=== PATIENT | male | born 1980 | race Two or more races ===

== ENCOUNTER 2018-02-05 21:11 | Inpatient (IN) | payer BC ==
[2018-02-05 21:32] VITALS: BMI 22.0
[2018-02-05] MEDS ORDERED: MELATONIN 5 MG TABLETS PO PRN (22:00)
--- NOTE | 2018-02-05 22:23 | HP ---
COWS - Scale Resting Pulse: 0= [place] 80 or Below Sweatin= Chills/Flushing Restless Observation: 1= Difficult to Sit Still Pupil Size: 0= Normal to Room Light Bone or Joint Aches: 1= Mild Discomfort Runny Nose/ Eye Tearin= Runny Nose/Eyes GI Upset > 30mins: 2= Nausea/Diarrhea Tremor Observation: 1= Tremor Steward, Not Seen Yawning Observation: 2= >3x During Session Anxiety or Irritability: 2=Irritable/Anxious Goose Flesh Skin: 0=Smooth Skin COWS Score: 12 Admission [facility] - HPI Chief Complaint: " I am dope sick" Allergies/Adverse Reactions: Allergies Allergy/AdvReac Type Severity Reaction Status Date / Time No Known Allergies Allergy Verified 02/05/18 22:29 History of Present Illness: 37 yo male with hx of IV heroin, cocaine, THC, and nicotine dependence is here seeking detox. Reports anxiety, denies any medical history or psychiatric hx. Denies suicidal / homicidal ideation. Last detox at [facility] one month ago, reports relapse after failed attempted to get into rehab. Longest period of sobriety 7 years. Exam Limitations: No Limitations - Ebola screening Have you been sick,other than usual withdrawal symptoms: No - Review of Systems Constitutional: Chills, Loss of Appetite, Changes in sleep, Weakness, Unintentional Wgt. Loss (30 lbs) EENT: reports: Throat Pain, Other (runny nose) Respiratory: reports: No Symptoms reported Cardiac: reports: No Symptoms Reported GI: reports: Diarrhea, Nausea, Poor Appetite, Poor Fluid Intake, Abdominal cramping : reports: No Symptoms Reported Musculoskeletal: reports: Back Pain, Joint Pain Integumentary: reports: Pruritus Neuro: reports: Weakness Endocrine: reports: Increased Thirst Hematology: reports: No Symptoms Reported Psychiatric: reports: Orientated x3, Agitated Other Systems: Reviewed and Negative Patient History - Patient Medical History Hx Anemia: No Hx Asthma: No Hx Chronic Obstructive Pulmonary Disease (COPD): No Hx Cancer: No Hx Cardiac Disorders: No Hx Congestive Heart Failure: No Hx Hypertension: No Hx Hypercholesterolemia: No Hx Pacemaker: No HX Cerebrovascular Accident: No Hx Seizures: No Hx Dementia: No Hx Diabetes: No Hx Gastrointestinal Disorders: No Hx Liver Disease: No Hx Genitourinary Disorders: No Hx Sexually Transmitted Disorders: No Hx Renal Disease (ESRD): No Hx Thyroid Disease: No Hx Human Immunodeficiency Virus (HIV): No (last tested 6 months ago ) Hx Hepatitis C: No Hx Depression: No Hx Suicide Attempt: No Hx Bipolar Disorder: No Hx Schizophrenia: No - Patient Surgical History Past Surgical History: No Hx Neurologic Surgery: No Hx Cataract Extraction: No Hx Cardiac Surgery: No Hx Lung Surgery: No Hx Breast Surgery: No Hx Breast Biopsy: No Hx Abdominal Surgery: No Hx Appendectomy: No Hx Cholecystectomy: No Hx Genitourinary Surgery: No Hx Section: No Hx Orthopedic Surgery: No Hx Hysterectomy: No Anesthesia Reaction: No - PPD History Previous Implant?: Yes Documented Results: Negative w/o proof PPD to be Administered?: Yes - Smoking Cessation Smoking history: Current every day smoker Have you smoked in the past 12 months: Yes Aproximately how many cigarettes per day: 20 Hx Chewing Tobacco Use: No Initiated information on smoking cessation: Yes 'Breaking Loose' booklet given: 02/05/18 - Substance & Tx. History Hx Alcohol Use: No Hx Substance Use: Yes Substance Use Type: Cocaine, Heroin, Marijuana Hx Substance Use Treatment: Yes ([facility] one month ago) - Substances Abused Marijuana/Hashish Route: Smoking Frequency: Daily Amount used: 3 - 7 g Age of first use: 12 Date of Last Use: 02/05/18 Heroin Route: Injection Frequency: Daily Amount used: 30 bags Age of first use: 16 Date of Last Use: 02/05/18 Cocaine Route: Injection Frequency: Daily Amount used: 1 gram Age of first use: 16 Date of Last Use: 02/05/18 Family Disease History - Family Disease History Family History: Denies Admission Physical Exam [facility] - Vital Signs Vital Signs: Vital Signs - 24 hr 02/05/18 21:30 Temperature 97.7 F Pulse Rate 71 Respiratory 18 Rate Blood Pressure 105/66 - Physical General Appearance: Yes: Disheveled, Mild Distress, Thin, Irritable, Anxious HEENTM: Yes: EOMI, Hearing grossly Normal, Normal ENT Inspection, Pharynx Normal , Tm's normal, Rhinorrhea Respiratory: Yes: Chest Non-Tender, Lungs Clear, Normal Breath Sounds, No Respiratory Distress, No Accessory Muscle Use Neck: Yes: No masses,lesions,Nodules, Trachea in good position Breast: Yes: Breast Exam Deferred Cardiology: Yes: Regular Rhythm, Regular Rate Abdominal: Yes: Normal Bowel Sounds, Non Tender, Flat, Soft Genitourinary: Yes: Within Normal Limits Back: Yes: Normal Inspection Musculoskeletal: Yes: full range of Motion, Gait Steady, Pelvis Stable, Back pain Extremities: Yes: Normal Capillary Refill, Normal Inspection, Normal Range of Motion, Non-Tender Neurological: Yes: chief lending officer II-XII NML intact, Fully Oriented, Motor Strength 5/5, Depressed Affect Integumentary: Yes: Normal Color, Warm, Diaphoresis Lymphatic: Yes: Within Normal Limits - Diagnostic (1) IVDU (intravenous drug user) Current Visit: Yes Status: Acute (2) Cocaine dependence Current Visit: Yes Status: Acute Qualifiers: Substance use status: uncomplicated Qualified Code(s): F14.20 - Cocaine dependence, uncomplicated (3) Marijuana dependence Current Visit: Yes Status: Acute (4) Opioid dependence with withdrawal Current Visit: Yes Status: Acute (5) Anxious mood Current Visit: Yes Status: Acute (6) Nicotine dependence Current Visit: Yes Status: Acute Qualifiers: Nicotine product type: cigarettes (7) Weight loss Current Visit: Yes Status: Acute Cleared for Admission [facility] - Detox or Rehab [facility] Level of Care: Medically Managed Detox Regimen/Protocol: Methadone [facility] Breath Alcohol Content Breath Alcohol Content: 0 Urine Drug Screen - Results Drug Screen Negative: No Urine Drug Screen Results: THC-Marijuana, KIRTI-Cocaine, OPI-Opiates
[2018-02-05] MEDS ORDERED: guaiFENesin/D-METHORPHAN HB 10 ML UNIT-DOSE CUPS PO PRN (22:29)
[2018-02-05] MEDS ORDERED: MENTHOL/PHENOL 1 EACH UD MM PRN (22:29)
[2018-02-05] MEDS ORDERED: LOPERAMIDE HCL 2 MG CAPSULE PO PRN (22:29)
[2018-02-05] MEDS ORDERED: MAGNESIUM HYDROX 2400MG/30ML ORAL SUSPENSION 30 ML CUP PO PRN (22:29)
[2018-02-05] MEDS ORDERED: METHADONE HCL 10 MG TABLET (FOR DETOX USE ONLY) PO ONE ×2 (22:29→23:00)
[2018-02-05] MEDS ORDERED: P-EPHED 60MG/TRIPROLIDI 2.5MG TABLET PO PRN (22:29)
[2018-02-05] MEDS ORDERED: ACETAMINOPHEN 325 MG TABLET (FP) PO PRN (22:29)
[2018-02-05] MEDS ORDERED: diazePAM 5 MG TABLET PO PRN (22:29)
[2018-02-05] MEDS ORDERED: MAGNESIUM CITRATE 300 ML BOTTLE PO PRN (22:29)
[2018-02-05] MEDS ORDERED: MAG HYDROX/AL HYDROX/SIMETH 30 ML UNIT-DOSE CUP PO PRN (22:29)
[2018-02-05] MEDS ORDERED: hydrOXYzine PAMOATE 50 MG CAPSULE (FP) PO PRN (22:29)
[2018-02-05] MEDS ORDERED: IBUPROFEN 400 MG TABLET (FP) PO PRN (22:29)
[2018-02-05] MEDS ORDERED: NICOTINE POLACRILEX 2 MG GUM BC PRN (22:29)
[2018-02-05] MEDS: LIDOCAINE PATCH REMOVAL MC SCH (23:13)
[2018-02-06 00:06] LABS: URINE APPEARANCE SLCLOUDY; URINE BILIRUBIN NEGATIVE (<2.0 mg/dL); URINE COLOR DKYELLOW; URINE GLUCOSE (UA) NEGATIVE (NEGATIVE); URINE KETONE NEGATIVE (NEGATIVE); URINE LEUK ESTERASE NEGATIVE (NEGATIVE); URINE NITRITE NEGATIVE (NEGATIVE); URINE UROBILINOGEN NEGATIVE mg/dL (0.2-1.0)
[2018-02-06 00:07] LABS: URINE PROTEIN 2+ (NEGATIVE)
[2018-02-06 00:43] LABS: URINE MUCUS FEW
[2018-02-06] MEDS ORDERED: METHADONE HCL 10 MG TABLET (FOR DETOX USE ONLY) PO ONE (10:00)
[2018-02-06 10:11] LABS: MCH 27.3 pg (25.7-33.7); MCHC 32.5 g/dl (32.0-35.9); MEAN CELL VOLUME 83.9 fl (80-96); MEAN PLT VOLUME 9.5 fl (7.5-11.1); PLATELET COUNT 236 K/MM3 (134-434); RBC 4.41 M/mm3 (4.00-5.60); WHITE BLOOD COUNT 6.2 K/mm3 (4.0-10.0)
[2018-02-06 10:23] LABS: CHLORIDE 105 mmol/L (98-107); POTASSIUM 4.2 mmol/L (3.5-5.1); SODIUM 142 mmol/L (136-145)
[2018-02-06 10:36] LABS: ALBUMIN 3.4 g/dl (3.4-5.0); ALK PHOS 121 U/L (45-117); ANION GAP 6 (8-16); BILIRUBIN,TOTAL 0.2 mg/dL (0.2-1.0); BLOOD UREA NITROGEN 17 mg/dL (7-18); CALCIUM 8.4 mg/dL (8.5-10.1); CO2 31 mmol/L (21-32); GLUCOSE,RANDOM 96 mg/dL (74-106); SGOT/AST 16 U/L (15-37); SGPT/ALT 19 U/L (12-78); TOT PROT 6.8 g/dl (6.4-8.2)
--- NOTE | 2018-02-06 11:51 | PN ---
BHS COWS - Scale Resting Pulse: 0= [place] 80 or Below Sweatin= Chills/Flushing Restless Observation: 1= Difficult to Sit Still Pupil Size: 0= Normal to Room Light Bone or Joint Aches: 2= Severe Diffuse Aches Runny Nose/ Eye Tearin= Runny Nose/Eyes GI Upset > 30mins: 0= None Tremor Observation of Outstretched Hands: 0= None Yawning Observation: 2= >3x During Session Anxiety or Irritability: 2=Irritable/Anxious Goose Flesh Skin: 3=Piloerection COWS Score: 13 BHS Progress Note (SOAP) Subjective: Body Aches, Fatigue, Interrupted Sleep. Objective: PATIENT A & O X 3, OBSERVED AMBULATING ON UNIT. NO ACUTE DISTRESS. 02/06/18 11:50 Vital Signs Temperature 96.0 F L 02/06/18 09:10 Pulse Rate 64 02/06/18 09:10 Respiratory Rate 16 02/06/18 09:10 Blood Pressure 91/50 02/06/18 09:10 O2 Sat by Pulse Oximetry (%) Laboratory Tests 02/05/18 02/06/18 02/06/18 23:50 07:00 07:00 WBC 6.2 RBC 4.41 Hgb 12.0 Hct 37.0 MCV 83.9 MCH 27.3 MCHC 32.5 RDW 14.0 Plt Count 236 MPV 9.5 Sodium 142 Potassium 4.2 Chloride 105 Carbon Dioxide 31 Anion Gap 6 L BUN 17 Creatinine 1.0 Creat Clearance w eGFR > 60 Random Glucose 96 Calcium 8.4 L Total Bilirubin 0.2 AST 16 ALT 19 Alkaline Phosphatase 121 H Total Protein 6.8 Albumin 3.4 Urine Color Dkyellow Urine Appearance Slcloudy Urine pH 5.0 Ur Specific [place] 1.027 Urine Protein 2+ H Urine Glucose (UA) Negative Urine Ketones Negative Urine Blood Negative Urine Nitrite Negative Urine Bilirubin Negative Urine Urobilinogen Negative Ur Leukocyte Esterase Negative Urine WBC (Auto) 1 Urine RBC (Auto) 1 Urine Mucus Few RPR Titer 02/06/18 07:00 WBC RBC Hgb Hct MCV MCH MCHC RDW Plt Count MPV Sodium Potassium Chloride Carbon Dioxide Anion Gap BUN Creatinine Creat Clearance w eGFR Random Glucose Calcium Total Bilirubin AST ALT Alkaline Phosphatase Total Protein Albumin Urine Color Urine Appearance Urine pH Ur Specific [place] Urine Protein Urine Glucose (UA) Urine Ketones Urine Blood Urine Nitrite Urine Bilirubin Urine Urobilinogen Ur Leukocyte Esterase Urine WBC (Auto) Urine RBC (Auto) Urine Mucus RPR Titer Nonreactive LABS NOTED. Assessment: 02/06/18 11:50 WITHDRAWAL SYMPTOMS. Plan: CONTINUE DETOX. INCREASE DAILY PO FLUID INTAKE.
--- NOTE | 2018-02-06 11:59 | EKG ---
Test Reason : Blood Pressure : / mmHG Vent. Rate : 073 BPM Atrial Rate : 073 BPM P-R Int : 186 ms QRS Dur : 088 ms QT Int : 382 ms P-R-T Axes : 075 055 047 degrees QTc Int : 420 ms NORMAL SINUS RHYTHM NORMAL ECG NO PREVIOUS ECGS AVAILABLE Confirmed by MD LINDY, KAROL ([id number]) on 02/06/2018 11:59:39 AM Referred By: Melquiades Calvo Confirmed By:KAROL ISRAEL MD
[2018-02-06] MEDS: NICOTINE 21 MG/24 HOURS TOPICAL PATCH TD SCH (14:22)
[2018-02-06] MEDS: LIDOCAINE 5% TOPICAL PATCH TP SCH (14:22)
[2018-02-06] MEDS: PRENATAL VITAMINS W/ FOLIC ACID TABLET (FP) PO SCH (14:22)
--- NOTE | 2018-02-06 15:34 | CONSULT ---
[facility] Psychiatric Consult - Data Date of interview: 02/06/18 Admission source: [facility] Identifying data: Patient is a 37 year old single male, without kids, unemployed (no financial assistance) and homeless. This is patient's first admission to detox at [facility]. Patient admitted to for cannabis, cocaine, and opioid dependence. Substance Abuse History: Following information confirmed with Mr. Jose: - Smoking Cessation. Smoking history: Current every day smoker. Have you smoked in the past 12 months: Yes. Aproximately how many cigarettes per day: 20. Hx Chewing Tobacco Use: No. Initiated information on smoking cessation: Yes. ' Breaking Loose' booklet given: 02/05/18. - Substance & Tx. History. Hx Alcohol Use: No. Hx Substance Use: Yes. Substance Use Type: Cocaine, Heroin, Marijuana. Hx Substance Use Treatment: Yes ([facility] one month ago). - Substances Abused. Marijuana/Hashish. Route: Smoking. Frequency: Daily. Amount used : 3 - 7 g. Age of first use: 12. Date of Last Use: 02/05/18. Heroin. Route: Injection. Frequency: Daily. Amount used: 30 bags. Age of first use: 16. Date of Last Use: 02/05/18. Cocaine. Route: Injection. Frequency: Daily. Amount used: 1 gram. Age of first use: 16. Date of Last Use: 02/05/18 Medical History: Denies. Psychiatric History: Patient presents as mildly irritable. Patient denies h/o psychiatric hospitalizations, outpatient care, and suicide attempt. Patient stated to script writer, " I don't need anything." Physical/Sexual Abuse/Trauma History: Denies Mental Status Exam - Mental Status Exam Alert and Oriented to: Time, Place, Person Cognitive Function: Good Patient Appearance: Unkempt Mood: Withdrawn, Irritable Affect: Mood Congruent Patient Behavior: Fatigued Speech Pattern: Delayed Voice Loudness: Moderately Soft/Quiet Thought Process: Intact Thought Disorder: Not Present Hallucinations: Denies Suicidal Ideation: Denies Homicidal Ideation: Denies Insight/Judgement: Poor Sleep: Fair Appetite: Fair Muscle strength/Tone: Normal Gait/Station: Other (Did not observe patient's gait.) Psychiatric Findings - Problem List ([place] 1, 2,3) (1) Substance induced mood disorder Current Visit: Yes Status: Acute (2) Cocaine dependence Current Visit: Yes Status: Acute Qualifiers: Substance use status: uncomplicated Qualified Code(s): F14.20 - Cocaine dependence, uncomplicated (3) Marijuana dependence Current Visit: Yes Status: Acute (4) Nicotine dependence Current Visit: Yes Status: Chronic Qualifiers: Nicotine product type: cigarettes Substance use status: uncomplicated Qualified Code(s): F17.210 - Nicotine dependence, cigarettes, uncomplicated (5) Opioid dependence with withdrawal Current Visit: Yes Status: Acute - Initial Treatment Plan Initial Treatment Plan: Psychoeducation provided. Detoxification in progress. Observation.
[2018-02-06] MEDS ORDERED: THIAMINE HCL 100 MG TABLET (FP) PO SCH (22:00)
[2018-02-06] MEDS: LIDOCAINE PATCH REMOVAL MC SCH (22:24)
[2018-02-07] MEDS ORDERED: METHADONE HCL 5 MG TABLET (FOR DETOX USE ONLY) PO ONE (10:00)
[2018-02-07] MEDS: NICOTINE 21 MG/24 HOURS TOPICAL PATCH TD SCH (12:08)
[2018-02-07] MEDS: PRENATAL VITAMINS W/ FOLIC ACID TABLET (FP) PO SCH (12:08)
[2018-02-07] MEDS: LIDOCAINE 5% TOPICAL PATCH TP SCH (12:08)
--- NOTE | 2018-02-07 12:51 | PN ---
BHS COWS - Scale Resting Pulse: 0= [place] 80 or Below Sweatin= Chills/Flushing Restless Observation: 1= Difficult to Sit Still Pupil Size: 0= Normal to Room Light Bone or Joint Aches: 2= Severe Diffuse Aches Runny Nose/ Eye Tearin= None GI Upset > 30mins: 0= None Tremor Observation of Outstretched Hands: 2= Slight Tremor Visible Yawning Observation: 2= >3x During Session Anxiety or Irritability: 4=Extreme Anxiety Goose Flesh Skin: 0=Smooth Skin COWS Score: 12 BHS Progress Note (SOAP) Subjective: Body Aches, Fatigue, Anxious. Objective: PATIENT A & O X 3, OBSERVED AMBULATING ON UNIT. NO ACUTE DISTRESS. 02/07/18 12:52 Vital Signs Temperature 98.3 F 02/07/18 09:24 Pulse Rate 58 L 02/07/18 09:24 Respiratory Rate 18 02/07/18 09:24 Blood Pressure 109/60 02/07/18 09:24 O2 Sat by Pulse Oximetry (%) Laboratory Tests 02/05/18 02/06/18 02/06/18 23:50 07:00 07:00 WBC 6.2 RBC 4.41 Hgb 12.0 Hct 37.0 MCV 83.9 MCH 27.3 MCHC 32.5 RDW 14.0 Plt Count 236 MPV 9.5 Sodium 142 Potassium 4.2 Chloride 105 Carbon Dioxide 31 Anion Gap 6 L BUN 17 Creatinine 1.0 Creat Clearance w eGFR > 60 Random Glucose 96 Calcium 8.4 L Total Bilirubin 0.2 AST 16 ALT 19 Alkaline Phosphatase 121 H Total Protein 6.8 Albumin 3.4 Urine Color Dkyellow Urine Appearance Slcloudy Urine pH 5.0 Ur Specific [place] 1.027 Urine Protein 2+ H Urine Glucose (UA) Negative Urine Ketones Negative Urine Blood Negative Urine Nitrite Negative Urine Bilirubin Negative Urine Urobilinogen Negative Ur Leukocyte Esterase Negative Urine WBC (Auto) 1 Urine RBC (Auto) 1 Urine Mucus Few RPR Titer 02/06/18 07:00 WBC RBC Hgb Hct MCV MCH MCHC RDW Plt Count MPV Sodium Potassium Chloride Carbon Dioxide Anion Gap BUN Creatinine Creat Clearance w eGFR Random Glucose Calcium Total Bilirubin AST ALT Alkaline Phosphatase Total Protein Albumin Urine Color Urine Appearance Urine pH Ur Specific [place] Urine Protein Urine Glucose (UA) Urine Ketones Urine Blood Urine Nitrite Urine Bilirubin Urine Urobilinogen Ur Leukocyte Esterase Urine WBC (Auto) Urine RBC (Auto) Urine Mucus RPR Titer Nonreactive LABS NOTED. Assessment: 02/07/18 12:52 WITHDRAWAL SYMPTOMS. Plan: CONTINUE DETOX. INCREASE DAILY PO FLUID INTAKE.
[2018-02-07 14:32] VITALS: BP 90/53; PULSE 65; TEMP 97.6
--- NOTE | 2018-02-07 21:51 | PN ---
S Progress Note Note: Patient did not wait to be further assessed. Patient left AMA.
--- NOTE | 2018-02-07 21:53 | DS ---
[facility] Detox Discharge Summary Admission Date: 02/05/18 Discharge Date: 02/07/18 - History Present History: Cannabis Dependence, Cocaine Dependence, Opioid Dependence Additional Comments: Patient stable, did not wait for further assessment. Aware of the risk of not completing program. Pertinent Past History: Vital Signs Temperature 97.6 F 02/07/18 14:31 Pulse Rate 65 02/07/18 14:31 Respiratory Rate 18 02/07/18 14:31 Blood Pressure 90/53 02/07/18 14:31 O2 Sat by Pulse Oximetry (%) Laboratory Last Values WBC 6.2 K/mm3 (4.0-10.0) 02/06/18 07:00 RBC 4.41 M/mm3 (4.00-5.60) 02/06/18 07:00 Hgb 12.0 GM/dL (11.7-16.9) 02/06/18 07:00 Hct 37.0 % (35.4-49) 02/06/18 07:00 MCV 83.9 fl (80-96) 02/06/18 07:00 MCH 27.3 pg (25.7-33.7) 02/06/18 07:00 MCHC 32.5 g/dl (32.0-35.9) 02/06/18 07:00 RDW 14.0 % (11.9-15.9) 02/06/18 07:00 Plt Count 236 K/MM3 (134-434) 02/06/18 07:00 MPV 9.5 fl (7.5-11.1) 02/06/18 07:00 Sodium 142 mmol/L (136-145) 02/06/18 07:00 Potassium 4.2 mmol/L (3.5-5.1) 02/06/18 07:00 Chloride 105 mmol/L (98-107) 02/06/18 07:00 Carbon Dioxide 31 mmol/L (21-32) 02/06/18 07:00 Anion Gap 6 (8-16) L 02/06/18 07:00 BUN 17 mg/dL (7-18) 02/06/18 07:00 Creatinine 1.0 mg/dL (0.7-1.3) 02/06/18 07:00 Creat Clearance w eGFR > 60 (>60) 02/06/18 07:00 Random Glucose 96 mg/dL (74-106) 02/06/18 07:00 Calcium 8.4 mg/dL (8.5-10.1) L 02/06/18 07:00 Total Bilirubin 0.2 mg/dL (0.2-1.0) 02/06/18 07:00 AST 16 U/L (15-37) 02/06/18 07:00 ALT 19 U/L (12-78) 02/06/18 07:00 Alkaline Phosphatase 121 U/L (45-117) H 02/06/18 07:00 Total Protein 6.8 g/dl (6.4-8.2) 02/06/18 07:00 Albumin 3.4 g/dl (3.4-5.0) 02/06/18 07:00 Urine Color Dkyellow 02/05/18 23:50 Urine Appearance Slcloudy 02/05/18 23:50 Urine pH 5.0 (5.0-8.0) 02/05/18 23:50 Ur Specific [place] 1.027 (1.001-1.035) 02/05/18 23:50 Urine Protein 2+ (NEGATIVE) H 02/05/18 23:50 Urine Glucose (UA) Negative (NEGATIVE) 02/05/18 23:50 Urine Ketones Negative (NEGATIVE) 02/05/18 23:50 Urine Blood Negative (NEGATIVE) 02/05/18 23:50 Urine Nitrite Negative (NEGATIVE) 02/05/18 23:50 Urine Bilirubin Negative (<2.0 mg/dL) 02/05/18 23:50 Urine Urobilinogen Negative mg/dL (0.2-1.0) 02/05/18 23:50 Ur Leukocyte Esterase Negative (NEGATIVE) 02/05/18 23:50 Urine WBC (Auto) 1 /hpf (3-5) 02/05/18 23:50 Urine RBC (Auto) 1 /hpf (0-3) 02/05/18 23:50 Urine Mucus Few 02/05/18 23:50 RPR Titer Nonreactive (NONREACTIVE) 02/06/18 07:00 - Physical Exam Results Vital Signs: Vital Signs Temperature 97.6 F 02/07/18 14:31 Pulse Rate 65 02/07/18 14:31 Respiratory Rate 18 02/07/18 14:31 Blood Pressure 90/53 02/07/18 14:31 O2 Sat by Pulse Oximetry (%) - Medication Discharge Medications: Ambulatory Orders NK [No Known Home Medication] 02/05/18 - Diagnosis (1) IVDU (intravenous drug user) Status: Acute (2) Cocaine dependence Status: Acute Qualifiers: Substance use status: uncomplicated Qualified Code(s): F14.20 - Cocaine dependence, uncomplicated (3) Marijuana dependence Status: Acute (4) Opioid dependence with withdrawal Status: Acute (5) Anxious mood Status: Acute (6) Nicotine dependence Status: Chronic Qualifiers: Nicotine product type: cigarettes Substance use status: uncomplicated Qualified Code(s): F17.210 - Nicotine dependence, cigarettes, uncomplicated (7) Weight loss Status: Acute - AMA Did Patient Leave Against Medical Advice: Yes
[2018-02-08] MEDS ORDERED: METHADONE HCL 5 MG TABLET (FOR DETOX USE ONLY) PO ONE (10:00)
[2018-02-09] MEDS ORDERED: METHADONE HCL 10 MG TABLET (FOR DETOX USE ONLY) PO ONE (10:00)
[2018-02-10] MEDS ORDERED: METHADONE HCL 5 MG TABLET (FOR DETOX USE ONLY) PO ONE (06:00)
== END 2018-02-07 16:25 | disposition left against medical advice (07) | DRG 770 ==
LOC: YASAS 21:11 → Y3N 22:30
PROVIDERS: ADMIT Internal Medicine; ATTEND Internal Medicine
PROC: HZ2ZZZZ Detoxification Services for Substance Abuse Treatment (ICD-10-PCS; principal; 2018-02-05)
DX: F11.23 Opioid dependence with withdrawal (principal); F14.20 Cocaine dependence, uncomplicated; F12.20 Cannabis dependence, uncomplicated; F17.210 Nicotine dependence, cigarettes, uncomplicated; F41.9 Anxiety disorder, unspecified; F19.24 Other psychoactive substance dependence with psychoactive substance-induced mood disorder; Z87.898 Personal history of other specified conditions; Z59.0 Homelessness
CPT/HCPCS: 36415; 80053; 81003; 81015; 85027; 86593; 93005; 93010

== ENCOUNTER 2020-07-21 11:07 | Inpatient (IN) | payer OTHER ==
--- OUTSIDE RECORDS SUMMARY | 2020-07-21 11:10 | XMS ---
:1980 Author Organization [facility] Support Name Relationship Address Phone UE Unavailable Unavailable Unavailable JORDAN SEN OTHER RELATIONSHIP [place] [address] [place] [address] SEN Other [place] [address] Re-disclosure Warning The records that you are about to access may contain information from federally- assisted alcohol or drug abuse programs. If such information is present, then the following federally mandated warning applies: This information has been disclosed to you from records protected by federal confidentiality rules (42 CFR part 2). The federal rules prohibit you from making any further disclosure of this information unless further disclosure is expressly permitted by the written consent of the person to whom it pertains or as otherwise permitted by 42 CFR part 2. A general authorization for the release of medical or other information is NOT sufficient for this purpose. The Federal rules restrict any use of the information to criminally investigate or prosecute any alcohol or drug abuse patient.The records that you are about to access may contain highly sensitive health information, the redisclosure of which is protected by Article 27-F of the [facility] Public Health law. If you continue you may haveaccess to information: Regarding HIV / AIDS; Provided by facilities licensed or operated by the [facility] Office of Mental Health; or Provided by the [facility] Office for People With Developmental Disabilities. If such information is present, then the following [facility] mandated warning applies: This information has been disclosed to you from confidential records which are protected by state law. State law prohibits you from making any further disclosure of this information without the specific written consent of the person to whom it pertains, or as otherwise permitted by law. Any unauthorized further disclosure in violation of state law may result in a fine or custodial sentence or both. A general authorization for the release of medical or other information is NOT sufficient authorization for further disclosure. Insurance Providers Payer name Policy type Policy ID Covered Covered alliance party's Policy P marely / Coverage alliance party ID relationship to [employer] Inf ormation type [employer]ado SELF PAY SP INSURANCE HE[employer] FIRST [id number] SP [id number] T HEALTH FIRST [id number] SP [id number] T Results ID Date Data Source [id number] 02/20/2020 01:00:00 PM EDT [facility] Name Value Range Interpretation Description Data Sup porting Code Source(s) Document(s ) SARS [facility] CORONAVIRUS 2 RNA This lab was ordered by [facility] ct Bill Inter and reported by [facility]. ID Date Data Source [id number] 02/17/2020 12:00:00 AM EDT [facility] Name Value Range Interpretation Code Description Data Michelle rce(s) Supporting Document(s ) SARS-CoV-2 [facility] RNA Resp Ql LANA+probe This lab was ordered by [facility] ITAL and reported by [facility]. ID Date Data Source [id number] 02/15/2020 02:50:00 PM EDT [facility] Name Value Range Interpretation Code Description Data Michelle rce(s) Supporting Document(s ) COV2 [facility] This lab was ordered by MIKE carlson nd reported by [facility] [place]. Procedure
--- NOTE | 2020-07-21 11:40 | BHS.RME ---
2019 N Coronavirus Screen - COVID-19 Screening Questions Dx of COVID-19 or had a positive test in the last 4 weeks?: No Any of these symptoms or contact with someone who has?: None Traveled domestically/internationally in the last 14 days?: No Substance Use & Tx History - Substance Use History Heroin Substance amount: 35 bags Frequency of use: Daily Substance route: Inhalation (ex: sniffing or snorting), Injection (ex: intravenous or skin popping) Date of Last Use: 07/20/20 (started age 15) Cocaine- Powder Substance amount: 1 gram Frequency of use: Daily Substance route: Injection (ex: intravenous or skin popping) Date of Last Use: 07/20/20 (started age 20) Marijuana/Hashish Substance amount: 2-3 blunts Frequency of use: Daily Substance route: Smoking Date of Last Use: 07/20/20 (started age 12) Nicotine Substance amount: 5 ciggs Frequency of use: Daily Substance route: Smoking Date of Last Use: 07/21/20 (started age 12) - Last Treatment Date of last treatment: 02/19-02/24/20 completed Treatment type: Substance Use Disorder (IRIS) Where was last treatment: Detox Physical/Psych/Mental Status - Behavior General Behavior: Increased activity (restlessness, agitation) Eye Contact: Normal - Cooperativeness Cooperativeness: Cooperative - Thinking Thought Processes: Tight, Logical, Goal Directed - Physical Health Problems Is patient presently having any pain?: No Does patient presently have any injuries (include location): No Does patient currently have a fever: No Is patient : No COWS - Scale Resting Pulse: 0= [place] 80 or Below Sweatin= Chills/Flushing Restless Observation: 3= Extraneous Movement Pupil Size: 1= Pupils >than Normal Bone or Joint Aches: 2= Severe Diffuse Aches Runny Nose/ Eye Tearin= Runny Nose/Eyes GI Upset > 30mins: 0= None Tremor Observation: 1= Tremor [place], Not Seen Yawning Observation: 1= 1-2x During Session Anxiety or Irritability: 1=Feels Anxious/Irritable Goose Flesh Skin: 3=Piloerection COWS Score: 15
--- NOTE | 2020-07-21 11:50 | HP ---
COWS - Scale Resting Pulse: 0= UT 80 or Below Sweatin= Chills/Flushing Restless Observation: 3= Extraneous Movement Pupil Size: 1= Pupils >than Normal Bone or Joint Aches: 2= Severe Diffuse Aches Runny Nose/ Eye Tearin= Runny Nose/Eyes GI Upset > 30mins: 0= None Tremor Observation: 1= Tremor [place], Not Seen Yawning Observation: 1= 1-2x During Session Anxiety or Irritability: 1=Feels Anxious/Irritable Goose Flesh Skin: 3=Piloerection COWS Score: 15 CIWA Score - Admission Criteria OASAS Guidelines: Admission for Medically Managed Detox: Requires at least one of the followin. CIWA greater than 12 2. Seizures within the past 24 hours 3. Delirium tremens within the past 24 hours 4. Hallucinations within the past 24 hours 5. Acute intervention needed for co occurring medical disorder 6. Acute intervention needed for co occurring psychiatric disorder 7. Severe withdrawal that cannot be handled at a lower level of care (continued vomiting, continued diarrhea, abnormal vital signs) requiring intravenous medication and/or fluids 8. Admitting History and Physical - Admission Chief Complaint: Mr. Jose is s 39 yo man who presents to [facility] requesting admission to detox for opioid use disorder. History of Present Illness: Mr. Jose is s 39 yo man who presents to [facility] requesting admission to detox for opioid use disorder. He completed detox here in January and was referred to rehab at [facility]. However, he did not follow up with the discharge plan. He relapsed approximately 6 weeks ago. He states he was in detox in [place] last week, told he had to wait 72 hours to get Suboxone, he left after 48 hours due to withdrawal symptoms. He then took himself to [facility] where he states he had an ultrasound and states "there is something wrong with my liver". PMH: "liver problem" PSH:Psych:Legal: none Soc: lives in the [place], rents a room alone - Substance Use History Heroin Substance amount: 35 bags Frequency of use: Daily Substance route: Inhalation (ex: sniffing or snorting), Injection (ex: intravenous or skin popping) Date of Last Use: 07/20/20 (started age 15) No OD No Narcan Cocaine- Powder Substance amount: 1 gram Frequency of use: Daily Substance route: Injection (ex: intravenous or skin popping) Date of Last Use: 07/20/20 (started age 20) Marijuana/Hashish Substance amount: 2-3 blunts Frequency of use: Daily Substance route: Smoking Date of Last Use: 07/20/20 (started age 12) Nicotine Substance amount: 5 ciggs Frequency of use: Daily Substance route: Smoking Date of Last Use: 07/21/20 (started age 12) - Last Treatment Date of last treatment: 02/19-02/24/20 completed Treatment type: Substance Use Disorder (IRIS) Where was last treatment: Detox RAVI : 0 vs: 120/69, 88, 14, 97.5, 98% UDS: THC, KIRTI, FEN, MOP Simon Jose, 1980 Search Date: 07/21/2020 12:08:38 PM The Drug Utilization Report below displays all of the controlled substance prescriptions, if any, that your patient has filled in the last twelve months. The information displayed on this report is compiled from pharmacy submissions to the Department, and accurately reflects the information as submitted by the pharmacies. This report was requested by: Mikaela Barrera | Reference #: [id number] Others' Prescriptions Patient Name: Simon Jose Date: 1980 Address: [address] [place] [address] Sex: Male Rx Written Rx Dispensed Drug Quantity Days Supply Prescriber Name 02/27/2020 02/28/2020 buprenorphine-naloxone 8-2 mg sl film 90 30 Joel Del Cid MD 02/11/2020 02/13/2020 buprenorphine-naloxone 8-2 mg sl film 42 14 Joel Del Cid MD 01/30/2020 02/05/2020 buprenorphine-naloxone 8-2 mg sl film 42 14 Joel Del Cid MD 01/16/2020 01/16/2020 buprenorphine-naloxone 8-2 mg sl film 42 14 Joel Del Cid MD 01/02/2020 01/02/2020 buprenorphine-naloxone 8-2 mg sl film 42 14 Joel Del Cid MD 12/19/2019 12/19/2019 buprenorphine-naloxone 8-2 mg sl film 42 14 Joel Del Cid MD 12/10/2019 12/10/2019 buprenorphine-naloxone 8-2 mg sl film 21 7 Joel Del Cid MD 12/04/2019 12/04/2019 buprenorphine-naloxone 8-2 mg sl film 21 7 Joel Del Cid MD Date: 1980 Address: [address] [place] [address] Sex: Male Rx Written Rx Dispensed Drug Quantity Days Supply Prescriber Name 09/13/2019 09/17/2019 buprenorphine-naloxone 8-2 mg sl film 60 30 Keyshawn Barrientos MD 08/15/2019 08/15/2019 buprenorphine-naloxone 8-2 mg sl film 60 30 Keyshawn Barrientos MD 08/01/2019 08/01/2019 suboxone 8 mg-2 mg sl film 28 14 Keyshawn Barrientos MD History Source: Patient Limitations to Obtaining History: No Limitations - Past Surgical History Past Surgical History: Yes: None - Smoking History Smoking history: Current every day smoker Have you smoked in the past 12 months: Yes Aproximately how many cigarettes per day: 20 - Alcohol/Substance Use Hx Alcohol Use: No History of Substance Use: reports: Cocaine, Heroin, Marijuana - Social History ADL: Independent Occupation: unemployed History of Recent Travel: No Admission [facility] Allergies/Adverse Reactions: Allergies Allergy/AdvReac Type Severity Reaction Status Date / Time No Known Allergies Allergy Verified 07/21/20 12:15 Exam Limitations: No Limitations - Ebola screening Have you traveled outside of the country in the last 21 days: No Have you been sick,other than usual withdrawal symptoms: No Do you have a fever: No - Review of Systems Constitutional: Unintentional Wgt. Loss (20 lbs in the past month) EENT: reports: Blurred Vision (wears contact lenses, has with him), Hearing Loss (since 2003) Respiratory: reports: No Symptoms reported Cardiac: reports: No Symptoms Reported GI: reports: No Symptoms Reported : reports: No Symptoms Reported Musculoskeletal: reports: Back Pain, Joint Pain Integumentary: reports: No Symptoms Reported Neuro: reports: No Symptoms reported Endocrine: reports: No Symptoms Reported Hematology: reports: No Symptoms Reported Psychiatric: reports: Anxious Patient History - Patient Medical History Hx Anemia: No Hx Asthma: No Hx Chronic Obstructive Pulmonary Disease (COPD): No Hx Cancer: No Hx Cardiac Disorders: No Hx Congestive Heart Failure: No Hx Hypertension: No Hx Hypercholesterolemia: No Hx Pacemaker: No HX Cerebrovascular Accident: No Hx Seizures: No Hx Dementia: No Hx Diabetes: No Hx Gastrointestinal Disorders: No Hx Liver Disease: No Hx Genitourinary Disorders: No Hx Sexually Transmitted Disorders: No Hx Renal Disease (ESRD): No Hx Thyroid Disease: No Hx Human Immunodeficiency Virus (HIV): No (last tested 6 months ago ) Hx Hepatitis C: No Hx Depression: No Hx Suicide Attempt: No Hx Bipolar Disorder: No Hx Schizophrenia: No - Patient Surgical History Past Surgical History: No Hx Neurologic Surgery: No Hx Cataract Extraction: No Hx Cardiac Surgery: No Hx Lung Surgery: No Hx Breast Surgery: No Hx Breast Biopsy: No Hx Abdominal Surgery: No Hx Appendectomy: No Hx Cholecystectomy: No Hx Genitourinary Surgery: No Hx Section: No Hx Orthopedic Surgery: No Hx Hysterectomy: No Anesthesia Reaction: No - PPD History Date: 02/22/20 Results: negative - Smoking Cessation Smoking history: Current every day smoker Have you smoked in the past 12 months: Yes Aproximately how many cigarettes per day: 5 Hx Chewing Tobacco Use: No Initiated information on smoking cessation: Yes 'Breaking Loose' booklet given: 07/21/20 Admission Physical Exam S - Physical General Appearance: Yes: Appropriately Dressed, Irritable, Anxious HEENTM: Yes: EOMI, Hearing grossly Normal, Normocephalic, Normal Voice Respiratory: Yes: Lungs Clear, No Respiratory Distress, No Accessory Muscle Use Neck: Yes: Within Normal Limits, Supple Breast: Yes: Breast Exam Deferred Cardiology: Yes: Regular Rhythm, Regular Rate Abdominal: Yes: Normal Bowel Sounds, Non Tender, Flat, Soft Genitourinary: Yes: Other (deferred) Back: Yes: Normal Inspection Musculoskeletal: Yes: Gait Steady Extremities: Yes: Normal Inspection, Non-Tender Neurological: Yes: Alert, Normal Response Integumentary: Yes: Normal Color, Dry, Warm, Track Nagel - Diagnostic (1) Cocaine dependence Current Visit: Yes Status: Acute Qualifiers: Substance use status: uncomplicated Qualified Code(s): F14.20 - Cocaine dependence, uncomplicated (2) IVDU (intravenous drug user) Current Visit: Yes Status: Acute (3) Nicotine dependence Current Visit: Yes Status: Acute Qualifiers: Nicotine product type: cigarettes Substance use status: in withdrawal Qualified Code(s): F17.213 - Nicotine dependence, cigarettes, with withdrawal (4) Opioid dependence with withdrawal Current Visit: No Status: Acute Cleared for Admission [facility] - Detox or Rehab [facility] Level of Care: Medically Managed Detox Regimen/Protocol: Methadone Breathalyzer - Breathalyzer Breathalyzer: 0 Urine Drug Screen - Test Device Lot number: [id number] Expiration date: 05/25/21 - Control Is test valid?: Yes - Results Urine drug screen results: THC-Marijuana, KIRTI-Cocaine, FEN-Fentanyl, MOP-Opiates Inpatient Rehab Admission - Rehab Decision to Admit Inpatient rehab admission?: No
[2020-07-21] MEDS ORDERED: METHOCARBAMOL 500 MG TABLET PO PRN (11:57)
[2020-07-21] MEDS ORDERED: NICOTINE POLACRILEX 2 MG GUM BUC PRN (11:57)
[2020-07-21] MEDS ORDERED: MENTHOL/PHENOL 1 EACH UD MM PRN (11:57)
[2020-07-21] MEDS ORDERED: cloNIDine HCL 0.1 MG TABLET PO PRN (11:57)
[2020-07-21] MEDS ORDERED: MAGNESIUM HYDROX 2400MG/30ML ORAL SUSPENSION 30 ML CUP PO PRN (11:57)
[2020-07-21] MEDS ORDERED: ACETAMINOPHEN 325 MG TABLET (FP) PO PRN ×2 (11:57)
[2020-07-21] MEDS ORDERED: MAGNESIUM CITRATE 300 ML BOTTLE PO PRN (11:57)
[2020-07-21] MEDS ORDERED: METHADONE HCL 10 MG TABLET (FOR DETOX USE ONLY) PO ONE (11:57)
[2020-07-21] MEDS ORDERED: BISMUTH SUBSALICYLATE 262 MG/15 ML BTL PO PRN (11:57)
[2020-07-21] MEDS ORDERED: MAG HYDROX/AL HYDROX/SIMETH 30 ML UNIT-DOSE CUP PO PRN (11:57)
[2020-07-21] MEDS ORDERED: IBUPROFEN 400 MG TABLET (FP) PO PRN (11:57)
[2020-07-21] MEDS ORDERED: ONDANSETRON *ODT* 4 MG TABLET SL PRN (11:57)
[2020-07-21 12:01] VITALS: BMI 21.9
--- OUTSIDE RECORDS SUMMARY | 2020-07-21 12:30 | XMS ---
:1980 Author Organization [facility] Support Name Relationship Address Phone UE Unavailable Unavailable Unavailable JORDAN SEN OTHER RELATIONSHIP [place] [address] [place] [address] SEN [place] [address] Re-disclosure Warning The records that you are [...] is protected by Article 27-F of the [facility] Public Health law. If you continue you may haveaccess to information: Regarding HIV / AIDS; Provided by facilities licensed or operated by the [facility] Office of Mental Health; or Provided by the [facility] Office for People With Developmental Disabilities. If such information is present, then the following [facility] mandated warning applies: This information has [...] law may result in a fine or half-way sentence or both. A general authorization for the release of medical or other information is NOT sufficient authorization for further disclosure. Insurance Providers Payer name Policy type Policy ID Covered Covered libertarian's Policy P marely / Coverage libertarian ID relationship to [employer] Inf ormation type mercado SELF PAY SP INSURANCE HE[employer] FIRST [id number] SP [id number] T HEALTH FIRST [id number] SP [id number] T Results ID Date Data Source [id number] 02/20/2020 01:00:00 PM EDT [facility] Name Value Range Interpretation Description Data Sup porting Code Source(s) Document(s ) SARS [facility] CORONAVIRUS 2 RNA This lab was ordered by [facility] Michael Muhammad and reported by [facility]. ID Date Data Source [id number] 02/17/2020 12:00:00 AM EDT [facility] Name Value Range Interpretation Code Description Data Michelle rce(s) Supporting Document(s ) SARS-CoV-2 [facility] RNA Resp Ql LANA+probe This lab was ordered by [facility] and reported by [facility]. ID Date Data Source [id number] 02/15/2020 02:50:00 PM EDT [facility] Name Value Range Interpretation Code Description Data Michelle rce(s) Supporting Document(s ) COV2 [facility] This lab was ordered by MIKE carlson nd reported by [facility]. Procedure
[2020-07-21] MEDS: hydrOXYzine PAMOATE 25 MG CAPSULE (FP) PO SCH ×3 (13:43→22:53)
[2020-07-21 15:54] LABS: POTASSIUM 4.8 mmol/L (3.5-5.1)
[2020-07-21 15:58] LABS: CALCIUM 9.1 mg/dL (8.5-10.1)
[2020-07-21 15:59] LABS: ALBUMIN 3.3 g/dl (3.4-5.0); BLOOD UREA NITROGEN 16.9 mg/dL (7-18)
[2020-07-21 16:02] LABS: BILIRUBIN,TOTAL 1.3 mg/dL (0.2-1); TOT PROT 7.2 g/dl (6.4-8.2)
[2020-07-21 16:21] LABS: HEMATOCRIT 41.2 % (35.4-49); HEMOGLOBIN 13.5 GM/dL (11.7-16.9); MCH 26.9 pg (25.7-33.7); MCHC 32.7 g/dl (32.0-35.9); MEAN CELL VOLUME 82.4 fl (80-96); MEAN PLT VOLUME 8.7 fl (7.5-11.1); PLATELET COUNT 404 K/MM3 (134-434); WHITE BLOOD COUNT 8.7 K/mm3 (4.0-10.0)
[2020-07-21] MEDS: MELATONIN 5 MG TABLETS PO SCH (22:53)
[2020-07-21] MEDS: THIAMINE HCL 100 MG TABLET (FP) PO SCH (22:53)
[2020-07-22] MEDS: hydrOXYzine PAMOATE 25 MG CAPSULE (FP) PO SCH ×5 (05:49→22:48)
[2020-07-22] MEDS ORDERED: METHADONE HCL 10 MG TABLET (FOR DETOX USE ONLY) ONE (08:52)
[2020-07-22] MEDS ORDERED: METHADONE HCL 5 MG TABLET (FOR DETOX USE ONLY) ONE (08:52)
[2020-07-22] MEDS ORDERED: METHADONE (DETOX) 20 MG, METHADONE (DETOX) 5 MG PO ONE (10:00)
[2020-07-22] MEDS ORDERED: PRENATAL VITAMINS W/ FOLIC ACID TABLET (FP) PO SCH (10:00)
[2020-07-22] MEDS ORDERED: NICOTINE 7 MG/24 HOURS TOPICAL PATCH TD SCH (10:00)
--- NOTE | 2020-07-22 12:37 | EKG ---
Test Reason : Blood Pressure : / mmHG Vent. Rate : 082 BPM Atrial Rate : 082 BPM P-R Int : 180 ms QRS Dur : 098 ms QT Int : 390 ms P-R-T Axes : 071 048 025 degrees QTc Int : 455 ms NORMAL SINUS RHYTHM BIATRIAL ENLARGEMENT INCOMPLETE RBBB LEFT VENTRICULAR HYPERTROPHY ABNORMAL ECG WHEN COMPARED WITH ECG OF 05-FEB-2018 23:16, NO SIGNIFICANT CHANGE WAS FOUND Confirmed by Froilan Corral ([id number]) on 07/22/2020 12:36:36 PM Referred By: Confirmed By:Froilan Corral
--- NOTE | 2020-07-22 13:01 | PN ---
[facility] COWS - Scale Resting Pulse: 0= [place] 80 or Below Sweatin= Chills/Flushing Restless Observation: 0= Sits Still Pupil Size: 1= Pupils >than Normal Bone or Joint Aches: 1= Mild Discomfort Runny Nose/ Eye Tearin= Nasal Congestion GI Upset > 30mins: 1= Stomach Cramp Tremor Observation of Outstretched Hands: 1= Tremor [place], Not Seen Yawning Observation: 1= 1-2x During Session Anxiety or Irritability: 1=Feels Anxious/Irritable Goose Flesh Skin: 3=Piloerection COWS Score: 11 S Progress Note (SOAP) Subjective: 39 years old male was admitted on 07/21/20 for opiate withdrawal sx management treating with methadone detox regiment feels tired prefers to stay in bed today bmi 22 ensure 120 ml po tid with meals limited conversation with staff Objective: 07/22/20 13:02 Vital Signs - 24 hr 07/21/20 07/21/20 07/21/20 13:42 16:38 20:52 Temperature 97.1 F L 98.0 F 97.7 F Pulse Rate 89 82 79 Respiratory 18 18 18 Rate Blood Pressure 122/77 109/60 96/53 L O2 Sat by Pulse 98 98 97 Oximetry (%) 07/22/20 07/22/20 07/22/20 06:03 08:38 12:35 Temperature 97.7 F 97.7 F 97.7 F Pulse Rate 71 72 71 Respiratory 18 18 18 Rate Blood Pressure 102/56 L 108/62 130/84 O2 Sat by Pulse 100 98 Oximetry (%) Laboratory Tests 07/21/20 07/21/20 07/21/20 12:55 12:55 12:55 WBC 8.7 RBC 5.00 Hgb 13.5 Hct 41.2 MCV 82.4 MCH 26.9 MCHC 32.7 RDW 14.0 Plt Count 404 D MPV 8.7 Sodium 136 Potassium 4.8 Chloride 104 Carbon Dioxide 29 Anion Gap 3 L BUN 16.9 Creatinine 1.0 Est GFR (CKD-EPI)AfAm 109.40 Est GFR (CKD-EPI)NonAf 94.39 Random Glucose 106 Calcium 9.1 Total Bilirubin 1.3 H AST 37 ALT 353 H Alkaline Phosphatase 248 H Total Protein 7.2 Albumin 3.3 L Syphilis Serology Non-reactive HIV Ag/Ab Combo Qual 07/21/20 12:55 WBC RBC Hgb Hct MCV MCH MCHC RDW Plt Count MPV Sodium Potassium Chloride Carbon Dioxide Anion Gap BUN Creatinine Est GFR (CKD-EPI)AfAm Est GFR (CKD-EPI)NonAf Random Glucose Calcium Total Bilirubin AST ALT Alkaline Phosphatase Total Protein Albumin Syphilis Serology HIV Ag/Ab Combo Qual Negative 07/22/20 13:03 covid pending Assessment: 07/22/20 13:03 opiate withdrawal Plan: methadone regiment
[2020-07-22] MEDS: THIAMINE HCL 100 MG TABLET (FP) PO SCH (22:48)
[2020-07-22] MEDS: MELATONIN 5 MG TABLETS PO SCH (22:48)
[2020-07-23] MEDS: hydrOXYzine PAMOATE 25 MG CAPSULE (FP) PO SCH (07:53)
[2020-07-23 09:24] VITALS: BP 111/67; PULSE 79; TEMP 98.2
[2020-07-23] MEDS ORDERED: METHADONE HCL 10 MG TABLET (FOR DETOX USE ONLY) PO ONE (10:00)
--- NOTE | 2020-07-23 13:34 | DS ---
[facility] Detox Discharge Summary Admission Date: 07/21/20 Discharge Date: 07/23/20 - History Present History: Opioid Dependence Additional Comments: 39 years old male was admitted on 07/21/20 for opiate withdrawal sx management treating with methadone detox regiment mr antonio insists to leave the detox today insists shower first than leave the detox security call to escort mr antonio off the detox Pertinent Past History: time for discharge 15 minutes - Physical Exam Results Vital Signs: Vital Signs Temperature 98.2 F 07/23/20 09:11 Pulse Rate 79 07/23/20 09:11 Respiratory Rate 18 07/23/20 09:11 Blood Pressure 111/67 07/23/20 09:11 O2 Sat by Pulse Oximetry (%) 100 07/22/20 20:35 Pertinent Admission Physical Exam Findings: opiate withdrawal Vital Signs - 24 hr 07/22/20 07/22/20 07/23/20 16:56 20:35 09:11 Temperature 98.1 F 98.1 F 98.2 F Pulse Rate 64 62 79 Respiratory 17 19 18 Rate Blood Pressure 104/65 128/82 111/67 O2 Sat by Pulse 98 100 Oximetry (%) Laboratory Tests 07/21/20 07/21/20 07/21/20 12:55 12:55 12:55 WBC 8.7 RBC 5.00 Hgb 13.5 Hct 41.2 MCV 82.4 MCH 26.9 MCHC 32.7 RDW 14.0 Plt Count 404 D MPV 8.7 Sodium 136 Potassium 4.8 Chloride 104 Carbon Dioxide 29 Anion Gap 3 L BUN 16.9 Creatinine 1.0 Est GFR (CKD-EPI)AfAm 109.40 Est GFR (CKD-EPI)NonAf 94.39 Random Glucose 106 Calcium 9.1 Total Bilirubin 1.3 H AST 37 ALT 353 H Alkaline Phosphatase 248 H Total Protein 7.2 Albumin 3.3 L Syphilis Serology Non-reactive COVID-19 ([facility]) HIV Ag/Ab Combo Qual 07/21/20 07/21/20 12:55 12:55 WBC RBC Hgb Hct MCV MCH MCHC RDW Plt Count MPV Sodium Potassium Chloride Carbon Dioxide Anion Gap BUN Creatinine Est GFR (CKD-EPI)AfAm Est GFR (CKD-EPI)NonAf Random Glucose Calcium Total Bilirubin AST ALT Alkaline Phosphatase Total Protein Albumin Syphilis Serology COVID-19 ([facility]) Not detected HIV Ag/Ab Combo Qual Negative lab noted - Treatment Hospital Course: Detox Protocol Followed, Responded well, Discharged Condition Good Patient has Accepted a Rehab Referral to: [facility] - Medication Discharge Medications: Ambulatory Orders NK [No Known Home Medication] 02/05/18 - Diagnosis (1) Nicotine dependence Status: Acute Qualifiers: Nicotine product type: cigarettes Substance use status: in withdrawal Qualified Code(s): F17.213 - Nicotine dependence, cigarettes, with withdrawal (2) Opioid dependence with withdrawal Status: Acute (3) Substance induced mood disorder Status: Suspected - AMA Did Patient Leave Against Medical Advice: Yes
[2020-07-24] MEDS ORDERED: METHADONE (DETOX) 10 MG, METHADONE (DETOX) 5 MG PO ONE (10:00)
[2020-07-25] MEDS ORDERED: METHADONE HCL 10 MG TABLET (FOR DETOX USE ONLY) PO ONE (10:00)
[2020-07-26] MEDS ORDERED: METHADONE HCL 5 MG TABLET (FOR DETOX USE ONLY) PO ONE (06:00)
== END 2020-07-23 09:45 | disposition left against medical advice (07) | DRG 770 ==
LOC: YASAS 11:07 → Y3N 12:27
PROVIDERS: ADMIT Allergy & Immunology; ATTEND Allergy & Immunology
PROC: HZ2ZZZZ Detoxification Services for Substance Abuse Treatment (ICD-10-PCS; principal; 2020-07-21)
DX: F11.23 Opioid dependence with withdrawal (principal); F14.20 Cocaine dependence, uncomplicated; F12.20 Cannabis dependence, uncomplicated; F17.210 Nicotine dependence, cigarettes, uncomplicated; F19.24 Other psychoactive substance dependence with psychoactive substance-induced mood disorder; R63.4 Abnormal weight loss; Z68.22 Body mass index [BMI] 22.0-22.9, adult
CPT/HCPCS: 36415; 80053; 85027; 86780; 87389; 93005; 93010; C9803; U0003

== ENCOUNTER 2021-03-27 13:38 | Inpatient (IN) | payer OTHER ==
[2021-03-27 15:09] VITALS: BMI 22.5
[2021-03-27] MEDS ORDERED: IBUPROFEN 400 MG TABLET (FP) PO PRN (23:49)
[2021-03-27] MEDS ORDERED: MAGNESIUM CITRATE 300 ML BOTTLE PO PRN (23:49)
[2021-03-27] MEDS ORDERED: MENTHOL/PHENOL 1 EACH UD MM PRN (23:49)
[2021-03-27] MEDS ORDERED: MAGNESIUM HYDROX 2400MG/30ML ORAL SUSPENSION 30 ML CUP PO PRN (23:49)
[2021-03-27] MEDS ORDERED: METHADONE HCL 10 MG TABLET (FOR DETOX USE ONLY) PO ONE (23:49)
[2021-03-27] MEDS ORDERED: NICOTINE POLACRILEX 2 MG GUM BUC PRN (23:49)
[2021-03-27] MEDS ORDERED: ACETAMINOPHEN 325 MG TABLET (FP) PO PRN ×2 (23:49)
[2021-03-27] MEDS ORDERED: MAG HYDROX/AL HYDROX/SIMETH 30 ML UNIT-DOSE CUP PO PRN (23:49)
[2021-03-27] MEDS ORDERED: ONDANSETRON *ODT* 4 MG TABLET SL PRN (23:49)
[2021-03-27] MEDS ORDERED: cloNIDine HCL 0.1 MG TABLET PO PRN (23:49)
[2021-03-27] MEDS ORDERED: BISMUTH SUBSALICYLATE 524 MG/30 ML PO PRN (23:49)
[2021-03-28] MEDS ORDERED: METHADONE HCL 10 MG TABLET (FOR DETOX USE ONLY) ONE ×2 (00:13→08:53)
[2021-03-28] MEDS ORDERED: METHADONE HCL 5 MG TABLET (FOR DETOX USE ONLY) ONE (08:53)
[2021-03-28] MEDS: NICOTINE 21 MG/24 HOURS TOPICAL PATCH TD SCH (11:19)
[2021-03-28] MEDS: METHADONE (DETOX) 20 MG, METHADONE (DETOX) 5 MG PO ONE ×2 (11:19→12:41)
[2021-03-28] MEDS: PRENATAL VITAMINS W/ FOLIC ACID TABLET (FP) PO SCH ×2 (11:19→12:40)
[2021-03-28] MEDS: METHOCARBAMOL 500 MG TABLET PO PRN (12:40)
[2021-03-28] MEDS ORDERED: THIAMINE HCL 100 MG TABLET (FP) PO SCH (22:00)
[2021-03-28] MEDS ORDERED: MELATONIN 5 MG TABLETS PO SCH (22:00)
[2021-03-29] MEDS ORDERED: METHADONE HCL 10 MG TABLET (FOR DETOX USE ONLY) PO ONE (10:00)
[2021-03-29] MEDS: PRENATAL VITAMINS W/ FOLIC ACID TABLET (FP) PO SCH (10:10)
[2021-03-29] MEDS: NICOTINE 21 MG/24 HOURS TOPICAL PATCH TD SCH (10:11)
[2021-03-29] MEDS: METHOCARBAMOL 500 MG TABLET PO PRN (10:12)
[2021-03-29 12:44] VITALS: PULSE 76; TEMP 96.4
[2021-03-29 18:24] VITALS: BP 100/76
[2021-03-30] MEDS ORDERED: METHADONE (DETOX) 10 MG, METHADONE (DETOX) 5 MG PO ONE (10:00)
[2021-03-31] MEDS ORDERED: METHADONE HCL 10 MG TABLET (FOR DETOX USE ONLY) PO ONE (10:00)
[2021-04-01] MEDS ORDERED: METHADONE HCL 5 MG TABLET (FOR DETOX USE ONLY) PO ONE (06:00)
== END 2021-03-29 16:54 | disposition left against medical advice (07) | DRG 770 ==
LOC: YASAS 13:38 → Y3N 23:43
PROVIDERS: ADMIT Allergy & Immunology; ATTEND Allergy & Immunology
PROC: HZ2ZZZZ Detoxification Services for Substance Abuse Treatment (ICD-10-PCS; principal; 2021-03-27)
DX: F11.23 Opioid dependence with withdrawal (principal); F14.20 Cocaine dependence, uncomplicated; F12.20 Cannabis dependence, uncomplicated; F17.210 Nicotine dependence, cigarettes, uncomplicated; R00.0 Tachycardia, unspecified
CPT/HCPCS: 93005; 93010; C9803; U0003; U0005

== ENCOUNTER 2021-05-08 21:13 | Inpatient (IN) | payer OTHER ==
[2021-05-08 22:26] VITALS: BMI 22.1
[2021-05-09] MEDS ORDERED: methaDONE HCL 10 MG TABLET (FOR DETOX USE ONLY) PO ONE ×2 (02:58)
[2021-05-09] MEDS ORDERED: IBUPROFEN 400 MG TABLET (FP) PO PRN (02:58)
[2021-05-09] MEDS ORDERED: cloNIDine HCL 0.1 MG TABLET PO PRN (02:58)
[2021-05-09] MEDS ORDERED: BISMUTH SUBSALICYLATE 524 MG/30 ML PO PRN (02:58)
[2021-05-09] MEDS ORDERED: MAG HYDROX/AL HYDROX/SIMETH 30 ML UNIT-DOSE CUP PO PRN (02:58)
[2021-05-09] MEDS ORDERED: ONDANSETRON *ODT* 4 MG TABLET SL PRN (02:58)
[2021-05-09] MEDS ORDERED: ACETAMINOPHEN 325 MG TABLET (FP) PO PRN ×2 (02:58)
[2021-05-09] MEDS ORDERED: guaiFENesin 200 MG/10 ML 10 ML UNIT-DOSE CUPS PO PRN (02:58)
[2021-05-09] MEDS ORDERED: clonazePAM 0.5 MG ODT TABLETS SL PRN (02:58)
[2021-05-09] MEDS ORDERED: MAGNESIUM HYDROX 2400MG/30ML ORAL SUSPENSION 30 ML CUP PO PRN (02:58)
[2021-05-09] MEDS ORDERED: METHOCARBAMOL 500 MG TABLET PO PRN (02:58)
[2021-05-09] MEDS ORDERED: NICOTINE 10 MG CARTRIDGE (INHALER) IH PRN (02:58)
[2021-05-09] MEDS ORDERED: MENTHOL/PHENOL 1 EACH UD MM PRN (02:58)
[2021-05-09] MEDS ORDERED: MAGNESIUM CITRATE 300 ML BOTTLE PO PRN (02:58)
[2021-05-09] MEDS ORDERED: hydrOXYzine PAMOATE 50 MG CAPSULE (FP) PO ONE (03:07)
[2021-05-09] MEDS ORDERED: hydrOXYzine PAMOATE 25 MG CAPSULE (FP) PO ONE (03:26)
[2021-05-09] MEDS ORDERED: IBUPROFEN 400 MG TABLET (FP) PO ONE (06:52)
[2021-05-09] MEDS ORDERED: METHOCARBAMOL 500 MG TABLET ONE (06:52)
[2021-05-09] MEDS: PRENATAL VITAMINS W/ FOLIC ACID TABLET (FP) PO SCH (12:22)
[2021-05-09] MEDS: CEPHALEXIN MONOHYDRATE 500 MG CAPSULE (UD) PO SCH ×3 (12:22→23:01)
[2021-05-09] MEDS: MELATONIN 5 MG TABLETS PO SCH (23:01)
[2021-05-09] MEDS: THIAMINE HCL 100 MG TABLET (FP) PO SCH (23:02)
[2021-05-10] MEDS: CEPHALEXIN MONOHYDRATE 500 MG CAPSULE (UD) PO SCH ×5 (05:59→23:00)
[2021-05-10] MEDS ORDERED: methaDONE HCL 10 MG TABLET (FOR DETOX USE ONLY) ONE (09:38)
[2021-05-10 10:21] LABS: HEMATOCRIT 35.9 % (35.4-49); HEMOGLOBIN 12.3 GM/dL (11.7-16.9); MCH 27.5 pg (25.7-33.7); MCHC 34.2 g/dl (32.0-35.9); MEAN CELL VOLUME 80.2 fl (80-96); MEAN PLT VOLUME 9.5 fl (7.5-11.1); PLATELET COUNT 322 10^3/uL (134-434); RBC 4.48 M/mm3 (4.00-5.60); RDW 13.2 % (11.9-15.9); WHITE BLOOD COUNT 6.9 K/mm3 (4.0-10.0)
[2021-05-10] MEDS: PRENATAL VITAMINS W/ FOLIC ACID TABLET (FP) PO SCH (10:52)
[2021-05-10 12:51] LABS: CALCIUM 8.8 mg/dL (8.5-10.1)
[2021-05-10 12:52] LABS: ALBUMIN 3.2 g/dl (3.4-5.0); BLOOD UREA NITROGEN 16.9 mg/dL (7-18); CREATININE 0.9 mg/dL (0.55-1.3)
[2021-05-10 12:54] LABS: BILIRUBIN,TOTAL 0.3 mg/dL (0.2-1); TOT PROT 6.7 g/dl (6.4-8.2)
[2021-05-10] MEDS: MELATONIN 5 MG TABLETS PO SCH (23:14)
[2021-05-10] MEDS: THIAMINE HCL 100 MG TABLET (FP) PO SCH (23:14)
[2021-05-10 23:31] VITALS: BP 107/59; PULSE 67; TEMP 98.2
[2021-05-11] MEDS: CEPHALEXIN MONOHYDRATE 500 MG CAPSULE (UD) PO SCH ×2 (05:57→06:00)
[2021-05-11] MEDS ORDERED: methaDONE HCL 10 MG TABLET (FOR DETOX USE ONLY) PO ONE (10:00)
[2021-05-11] MEDS: PRENATAL VITAMINS W/ FOLIC ACID TABLET (FP) PO SCH (10:12)
[2021-05-13] MEDS ORDERED: methaDONE HCL 10 MG TABLET (FOR DETOX USE ONLY) PO ONE (10:00)
== END 2021-05-11 11:11 | disposition left against medical advice (07) | DRG 770 ==
LOC: YASAS 21:13 → Y6N 05-09 10:58
PROVIDERS: ADMIT Allergy & Immunology; ATTEND Allergy & Immunology
PROC: HZ2ZZZZ Detoxification Services for Substance Abuse Treatment (ICD-10-PCS; principal; 2021-05-09)
DX: F11.23 Opioid dependence with withdrawal (principal); F10.230 Alcohol dependence with withdrawal, uncomplicated; F14.20 Cocaine dependence, uncomplicated; F12.20 Cannabis dependence, uncomplicated; F17.210 Nicotine dependence, cigarettes, uncomplicated; L03.114 Cellulitis of left upper limb; R01.1 Cardiac murmur, unspecified; R63.4 Abnormal weight loss; Z68.22 Body mass index [BMI] 22.0-22.9, adult
CPT/HCPCS: 36415; 80053; 85027; 86780; C9803; U0003; U0005